=== PATIENT | male | born 1940 | race Caucasian/White ===

== ENCOUNTER 2019-12-03 20:39 | Inpatient (IN) | payer OTHER, MEDICAID ==
[~2019-12-03] VITALS: Ht 162.6 cm; Wt 78.0 kg
[2019-12-03 22:46] LABS: BASOPHILS % 0.8 % (0.0-2.0); EOSINOPHILS % 2.9 % (0.0-5.0); HEMATOCRIT. 33.3 % (42.0-52.0); HEMOGLOBIN. 11.3 g/dL (14.0-18.0); LYMPHOCYTES % 16.5 % (20.0-50.0); MEAN CORPUSCULAR HEMOGLOBIN 29.7 pg (28.0-32.0); MEAN CORPUSCULAR VOLUME 87.6 fL (80.0-94.0); MEAN PLATELET VOLUME 9.4 fl (7.4-10.4); MONOCYTES % 8.4 % (2.0-8.0); NEUTROPHILS % 71.4 % (40.0-76.0); PLATELET 236 x1000/uL (130-400); RED CELL DISTRIBUTION WIDTH 13.9 % (11.6-14.6)
[2019-12-03 22:52] LABS: CHLORIDE 107 mEq/L (98-107)
[2019-12-04 00:19] LABS: CLARITY URINE CLEAR (CLEAR); COLOR URINE YELLOW (YELLOW); KETONES URINE NEGATIVE (NEGATIVE); LEUKOCYTE ESTERASE URINE NEGATIVE (NEGATIVE); NITRITE URINE NEGATIVE (NEGATIVE); OCCULT BLOOD URINE NEGATIVE (NEGATIVE); PROTEIN URINE 1+ (NEGATIVE); SPECIFIC GRAVITY URINE 1.011 (1.005-1.030); UROBILINOGEN URINE 0.2 E.U./dL (0.2-1.0)
[2019-12-04] MEDS ORDERED: HYDRALAZINE 20MG/ML VIAL IV ONE (01:45)
[2019-12-04] MEDS ORDERED: IOHEXOL-350 100 ML BOTTLE ONE (02:08)
[2019-12-04] MEDS ORDERED: PIPERACILLIN/TAZOBACTAM 3.375GM/50ML PREMIX IV SCH (03:00)
[2019-12-04] MEDS ORDERED: DEXTROSE 50% WATER 50ML SYRINGE IV PRN (09:00)
[2019-12-04] MEDS ORDERED: HYDROCODONE/ACETAMINOPHEN 5/325MG TABLET PO PRN ×2 (09:00→16:37)
[2019-12-04] MEDS ORDERED: MORPHINE SULFATE 2 MG/ML CPJ (NOT FOR IM USE) IV PRN (09:00)
[2019-12-04] MEDS: AMLODIPINE 5MG TABLET PO SCH ×2 (11:27→21:01)
[2019-12-04] MEDS ORDERED: ENOXAPARIN 40MG/0.4ML SYR SUBCUT SCH (11:30)
[2019-12-04] MEDS ORDERED: PIPERACILLIN/TAZOBACTAM 3.375 G in DEXT 5% WATER 100 ML IV NR (12:00)
[2019-12-04] MEDS ORDERED: LOSARTAN POTASSIUM 50 MG TABLET PO SCH (12:00)
[2019-12-04] MEDS: INSULIN LISPRO 100 UNITS/ML SUBCUT SCH ×3 (13:48→21:05)
[2019-12-04] MEDS: BLOOD SUGAR DIAGNOSTIC STRIP TEST SCH ×3 (13:48→20:57)
[2019-12-04 15:30] VITALS: BP 199/64
[2019-12-04] MEDS: CLONIDINE 0.1MG TABLET PO PRN (15:47)
[2019-12-04] MEDS ORDERED: HYDRALAZINE 20MG/ML VIAL IV NR (16:36)
[2019-12-04] MEDS ORDERED: CARV12.545 MT (16:51)
[2019-12-04] MEDS ORDERED: SIMV-46 MT (16:51)
[2019-12-04] MEDS ORDERED: HYDR-4135 MT (16:51)
[2019-12-04] MEDS ORDERED: SITA1TAB2 MT (16:51)
[2019-12-04] MEDS ORDERED: BENA40TA9 MT (16:51)
[2019-12-04] MEDS ORDERED: FURO20TA4 PO (16:51)
[2019-12-04] MEDS ORDERED: GABA-531 MT (16:51)
[2019-12-04] MEDS ORDERED: VANCOMYCIN 1500MG in DEXTROSE 5% WATER 250ML IV SCH (18:00)
[2019-12-04] MEDS: FUROSEMIDE 20MG/2ML VIAL IVP SCH (18:13)
[2019-12-04] MEDS: GABAPENTIN 300MG CAPSULE PO SCH (18:14)
[2019-12-04] MEDS: LOSARTAN POTASSIUM 50 MG TABLET PO SCH (18:14)
[2019-12-04] MEDS: PIPERACILLIN/TAZOBACTAM 3.375 G in DEXT 5% WATER 100 ML IV SCH (18:15)
[2019-12-04] MEDS ORDERED: INFLUENZA VIRUS VACCINE(AFLURIA) 0.5ML SYR IM ONE (19:30)
[2019-12-04] MEDS ORDERED: PNEUMOCOCCAL 23-VAL P-SAC VAC 0.5 ML IM ONE (19:30)
[2019-12-04 20:00] VITALS: BP 163/70
[2019-12-04] MEDS: ENOXAPARIN 80MG/0.8ML SYR SUBCUT SCH (20:50)
[2019-12-04] MEDS: HYDRALAZINE HCL 100MG TABLET PO SCH (21:00)
[2019-12-04] MEDS: ATORVASTATIN CALCIUM 40MG TABLET PO SCH (21:01)
[2019-12-05] VITALS: BP 137/63
[2019-12-05] MEDS: PIPERACILLIN/TAZOBACTAM 3.375 G in DEXT 5% WATER 100 ML IV SCH ×4 (00:43→20:45)
[2019-12-05 04:00] VITALS: BP 137/41
[2019-12-05] MEDS: LOSARTAN POTASSIUM 50 MG TABLET PO SCH ×2 (05:37→17:30)
[2019-12-05] MEDS: VANCOMYCIN 750 MG PREMIX 150 ML IV SCH ×2 (05:38→17:28)
[2019-12-05] MEDS: BLOOD SUGAR DIAGNOSTIC STRIP TEST SCH ×4 (06:06→20:36)
[2019-12-05] MEDS: INSULIN LISPRO 100 UNITS/ML SUBCUT SCH ×4 (06:24→20:35)
[2019-12-05 06:31] LABS: BASOPHILS % 0.9 % (0.0-2.0); LYMPHOCYTES % 16.9 % (20.0-50.0); MEAN CORPUSCULAR HEMOGLOBIN 29.9 pg (28.0-32.0); MEAN CORPUSCULAR VOLUME 86.8 fL (80.0-94.0); MEAN PLATELET VOLUME 9.4 fl (7.4-10.4); MONOCYTES % 8.1 % (2.0-8.0); NEUTROPHILS % 70.1 % (40.0-76.0); PLATELET 226 x1000/uL (130-400); RED BLOOD CELL COUNT 3.34 mill/uL (4.7-6.1); RED CELL DISTRIBUTION WIDTH 13.9 % (11.6-14.6)
[2019-12-05 06:51] LABS: PROTHROMBIN TIME 10.7 sec (9.6-11.0)
[2019-12-05 07:31] LABS: CHLORIDE 107 mEq/L (98-107)
[2019-12-05 08:00] VITALS: BP 143/55
[2019-12-05] MEDS: ENOXAPARIN 80MG/0.8ML SYR SUBCUT SCH ×2 (09:00→20:34)
[2019-12-05] MEDS: FUROSEMIDE 20MG/2ML VIAL IVP SCH (09:18)
[2019-12-05] MEDS: AMLODIPINE 5MG TABLET PO SCH ×2 (09:19→20:34)
[2019-12-05] MEDS: GABAPENTIN 300MG CAPSULE PO SCH ×2 (09:19→17:28)
[2019-12-05] MEDS: HYDRALAZINE HCL 100MG TABLET PO SCH ×2 (09:19→20:34)
[2019-12-05 16:00] VITALS: BP 121/52
[2019-12-05] MEDS: POLYVINYL ALCOHOL OPHTH DROPS 15ML EACHEYE SCH (17:28)
[2019-12-05 20:00] VITALS: BP 163/85
[2019-12-05] MEDS: ATORVASTATIN CALCIUM 40MG TABLET PO SCH (20:34)
[2019-12-06] VITALS (15 sets, daily range): BP systolic 95–204; BP diastolic 41–75
[2019-12-06] MEDS: POLYVINYL ALCOHOL OPHTH DROPS 15ML EACHEYE SCH ×4 (00:06→17:08)
[2019-12-06] MEDS: PIPERACILLIN/TAZOBACTAM 3.375 G in DEXT 5% WATER 100 ML IV SCH ×4 (02:24→23:20)
[2019-12-06] MEDS ORDERED: HYDRALAZINE 20MG/ML VIAL IV PRN (05:45)
[2019-12-06] MEDS: LOSARTAN POTASSIUM 50 MG TABLET PO SCH ×2 (05:45→17:08)
[2019-12-06] MEDS: VANCOMYCIN 750 MG PREMIX 150 ML IV SCH ×2 (05:47→17:09)
[2019-12-06] MEDS: INSULIN LISPRO 100 UNITS/ML SUBCUT SCH ×4 (05:55→21:27)
[2019-12-06] MEDS: BLOOD SUGAR DIAGNOSTIC STRIP TEST SCH ×4 (05:55→21:00)
[2019-12-06 06:18] LABS: BASOPHILS % 0.4 % (0.0-2.0); EOSINOPHILS % 3.9 % (0.0-5.0); HEMATOCRIT. 29.6 % (42.0-52.0); HEMOGLOBIN. 10.3 g/dL (14.0-18.0); LYMPHOCYTES % 18.1 % (20.0-50.0); MEAN CORPUSCULAR HEMOGLOBIN 29.9 pg (28.0-32.0); MEAN CORPUSCULAR VOLUME 86.4 fL (80.0-94.0); MEAN PLATELET VOLUME 9.4 fl (7.4-10.4); NEUTROPHILS % 69.6 % (40.0-76.0); PLATELET 255 x1000/uL (130-400); RED BLOOD CELL COUNT 3.43 mill/uL (4.7-6.1); RED CELL DISTRIBUTION WIDTH 13.8 % (11.6-14.6)
[2019-12-06 07:13] LABS: CHLORIDE 106 mEq/L (98-107)
[2019-12-06] MEDS: HYDRALAZINE HCL 100MG TABLET PO SCH ×2 (08:54→21:17)
[2019-12-06] MEDS: GABAPENTIN 300MG CAPSULE PO SCH ×2 (08:54→16:19)
[2019-12-06] MEDS: AMLODIPINE 5MG TABLET PO SCH ×2 (08:54→21:17)
[2019-12-06] MEDS: ENOXAPARIN 80MG/0.8ML SYR SUBCUT SCH ×2 (08:55→21:16)
[2019-12-06] MEDS: FUROSEMIDE 20MG/2ML VIAL IVP SCH (08:56)
[2019-12-06] MEDS: CLONIDINE 0.1MG TABLET PO PRN (16:19)
[2019-12-06] MEDS: ATORVASTATIN CALCIUM 40MG TABLET PO SCH (21:17)
[2019-12-07] VITALS (7 sets, daily range): BP systolic 133–168; BP diastolic 50–59
[2019-12-07] MEDS: VANCOMYCIN 750 MG PREMIX 150 ML IV SCH (05:10)
[2019-12-07] MEDS: BLOOD SUGAR DIAGNOSTIC STRIP TEST SCH ×2 (05:42→11:44)
[2019-12-07] MEDS: POLYVINYL ALCOHOL OPHTH DROPS 15ML EACHEYE SCH ×3 (06:13→11:42)
[2019-12-07] MEDS: LOSARTAN POTASSIUM 50 MG TABLET PO SCH (06:13)
[2019-12-07] MEDS: INSULIN LISPRO 100 UNITS/ML SUBCUT SCH ×2 (06:21→14:09)
[2019-12-07] MEDS: PIPERACILLIN/TAZOBACTAM 3.375 G in DEXT 5% WATER 100 ML IV SCH ×2 (06:23→09:00)
[2019-12-07] MEDS: FUROSEMIDE 20MG/2ML VIAL IVP SCH (10:13)
[2019-12-07] MEDS: HYDRALAZINE HCL 100MG TABLET PO SCH ×3 (10:14→14:36)
[2019-12-07] MEDS: ENOXAPARIN 80MG/0.8ML SYR SUBCUT SCH (10:14)
[2019-12-07] MEDS: AMLODIPINE 5MG TABLET PO SCH (10:14)
[2019-12-07] MEDS: GABAPENTIN 300MG CAPSULE PO SCH (10:14)
[2019-12-07] MEDS: CLONIDINE 0.1MG TABLET PO PRN (11:40)
[2019-12-07] MEDS: HYDRALAZINE 20MG/ML VIAL IV NR (12:15)
[2019-12-07] MEDS ORDERED: CLONIDINE HCL 0.2MG/24HR PATCH TOP NR (15:15)
== END 2019-12-07 15:35 | disposition short-term general hospital (02) | DRG 872 ==
LOC: ER 20:39 → 5WST 12-04 02:09 → UNDOADMIN 12-04 02:09 → ENRESERV 12-04 14:20 → UNDODISIN 12-07 14:30
PROVIDERS: ADMIT Internal Medicine; ATTEND Internal Medicine
DX: A41.9 Sepsis, unspecified organism (principal); E11.52 Type 2 diabetes mellitus with diabetic peripheral angiopathy with gangrene; E44.1 Mild protein-calorie malnutrition; I96 Gangrene, not elsewhere classified; L97.929 Non-pressure chronic ulcer of unspecified part of left lower leg with unspecified severity; I16.0 Hypertensive urgency; I10 Essential (primary) hypertension; D64.9 Anemia, unspecified; E11.40 Type 2 diabetes mellitus with diabetic neuropathy, unspecified; Z68.29 Body mass index [BMI] 29.0-29.9, adult
CPT/HCPCS: 36415; 71045; 72191; 73706; 80048; 80053; 80202; 81003; 82962; 83880; 85025; 93005; 93306; 93970; 96365; 99285; J0360; J1650; J1815; J1940; J2543; J3370; J7060; Q9967